=== PATIENT | male | born 1980 | race Hispanic/Latino ===

== ENCOUNTER 2024-12-19 11:26 | Day surgery (SDC) | payer OTHER, SELFPAY ==
[2024-12-17 07:33] VITALS: BMI 34.4
[2024-12-19 11:48] VITALS: BMI 33.0
[2024-12-19 11:56] VITALS: BP 144/95; PULSE 85; RESP 14; TEMP 36.6; O2SAT 100
[2024-12-19] MEDS: OXYMETAZOLINE NASAL SPRAY 30 ML 2 SPRAYS NASAL ×2 (12:11→13:45)
[2024-12-19] MEDS: LACTATED RINGERS 1,000 ML 42 ML IV ×2 (12:13→14:14)
--- NOTE | 2024-12-19 13:07 | PM.PREOP ---
Pre-operative Note Interval Note History & Physical reviewed/Exam performed by Physician: Yes Changes to H&P: No
--- NOTE | 2024-12-19 13:08 | P.HP_ITS ---
History of Present Illness History of Present Illness Date Patient Seen: 12/19/24 Time Patient Seen: 13:08 Chief complaint: Septoplasty Narrative: 44-year-old male last seen in clinic 11/04/2024 received cardiac clearance 12/16 and was begun on losartan 100 mg daily. No other health changes. Wishes to proceed with septoplasty and turbinate reduction as scheduled. PFSH Medical History Nasal septal deviation Sleep disturbance Rhinorrhea Tinnitus Surgical History Hx of hand surgery Hx of colonoscopy (02/2023) Social History Smoking Status: Current every day smoker alcohol intake: current Meds Home Medications and Allergies Home Medications Medication Instructions Recorded Confirmed Type losartan 100 mg tablet 100 mg PO DAILY 12/17/24 12/19/24 History Allergies Allergy/AdvReac Type Severity Reaction Status Date / Time No Known Drug Allergies Allergy Verified 12/19/24 11:44 Review of Systems Review of Systems Narrative: Negative except as listed in the HPI Exam Vital Signs (past 8 hours): - 12/19/24 11:56 Temperature 97.9 F Pulse Rate 85 Respiratory Rate 14 Blood Pressure 144/95 H Pulse Oximetry 100 Oxygen Delivery Method Room Air Oxygen Delivery Method Room Air Narrative Exam Narrative: Well-developed well-nourished, heart regular rate and rhythm without murmur, lungs clear to auscultation bilaterally Assessment & Plan Assessment & Plan narrative: Assessment: Nasal airway obstruction, septal deviation, inferior turbinate h ypertrophy, history of nasal injury, upper airway obstruction Plan: Following discussion of the material risks benefits complications and alternatives, the patient elected to proceed. Time-Based Coding :: [TOTAL MINUTES] spent with patient and on the chart (including review of chart, obtaining history, exam, reviewing outside data, placing orders, documenting exam and treatment plan, and counseling patient) on [DATE].
--- NOTE | 2024-12-19 13:09 | P.OP_ITS ---
Operative Date/Time/Diagnoses Date of procedure: 12/19/24 Time of procedure: 14:45 Pre-op diagnosis: Nasal airway obstruction, septal deviation, inferior turbinate hypertrophy, history of nasal injury, respiratory obstruction Post-op diagnosis: same Procedure & Clinicians Procedure: 1. Septoplasty 2. Bilateral inferior turbinate reduction via intramural cautery Same procedure as scheduled: Yes Indications: 44 Year old with the above diagnoses incompletely managed with medical therapy presents for the above procedure. Following discussion of the material risks benefits complications and alternatives, the patient elected to proceed. Surgeon: Ulices Peña Click Yes if Unassisted: Yes Anesthesia Type: General and Local Operative Notes Findings: 1 to 2+ primarily right septal deviation, [id number]-right inferior turbinate hypertrophy Estimated Blood Loss (mL): 60 Procedure in detail: Following identification and confirmation of consent as well as preoperative Afrin nasal spray, the patient was brought to the operating room suite and placed in the supine position. General endotracheal anesthesia was admi nistered. I infiltrated the septum widely bilaterally with 1% lidocaine 1 100,000 epinephrine followed by temporary packing with cotton with Afrin and 4% lidocaine. Following sterile prep and drape, the packing was removed and I performed a right devyn-transfixion incision, elevated the right mucoperichondrial and mucoperiosteal flap. I disarticulated near the bony/cartilaginous junction and elevated the left mucoperiosteal flap. Deviated portions of the perpendicular plate of the ethmoid and vomer were resected. The residual quadrilateral cartilage was further straightened by trimming it inferiorly as well as reducing the maxillary crest. A 2 mm strip of cartilage paralleling the residual 1 cm dorsal and caudal strut was resected to further straighten the quadrilateral cartilage. The hemitransfixion incision was closed with interrupted 5 0 chromic followed by a running 4 0 plain gut mattress suture to reapproximate the septal flaps. At case completion, [place] air channel silastic splints were placed bilaterally, sutured anteriorly with a single 4 0 nylon. The head of each inferior turbinate had been previously infiltrated with additional local anesthetic and a 25 gauge spinal needle was used to impale the length of the turbinate, with cautery on a setting of 15 activated on slow withdrawal over 2 passes. The turbinates were then outfractured. The procedure completed, sponge and needle counts were correct and the patient was extubated in the operating room and taken to recovery room in stable condition without known complication. Postoperative care: Nasal saline every hour while awake, Vaseline or Polysporin to the nostrils at all times, begin irrigations t.i.d. beginning pod 1. Humidifier at the bedside blowing on the face. Tylenol alternating with Advil for pain control, oxycodone if necessary for breakthrough pain. Complications: none Post-operative Condition: stable Disposition: same day surgery Plan for aftercare: Nasal saline every hour while awake, begin irrigations t.i.d. tomorrow if desired. Polysporin to the nostrils at all times, Tylenol alternating with Advil for pain control, oxycodone for breakthrough pain. Elevate head of bed, no nose blowing, no straining for 2 weeks. Ice directly under the nose on the upper lip has tolerated 24-48 hours at a minimum. Follow-up in 1 week for nasal splint removal.
--- NOTE | 2024-12-19 13:39 | SUR.OPER ---
Supine on padded OR bed, head on gel pad, arms padded and tucked at sides, legs uncrossed, safety belt at thigh, tape over blanket over lower legs .
[2024-12-19] MEDS: LIDOCAINE 4% SOLN 50 ML 20 ML TOP (13:45)
[2024-12-19] MEDS: LIDOCAINE 1% W/EPI 20ML 20 ML INJ (13:55)
[2024-12-19] MEDS: BACITRACIN OINT 0.9 GM PCKT 1 APPLIC TOP (14:20)
[2024-12-19 14:53] VITALS: BP 143/96; PULSE 113; RESP 10; TEMP 36.2; O2SAT 100
[2024-12-19] MEDS: OXYCODONE IR 5 MG TABLET PO ×2 (15:00→15:25)
[2024-12-19 15:01] VITALS: BP 153/105; PULSE 85; RESP 8; O2SAT 99
[2024-12-19] MEDS: fentaNYL 100 MCG/2 ML INJ IV ×2 (15:06→15:22)
[2024-12-19 15:07] VITALS: BP 145/102; PULSE 75; RESP 12; O2SAT 99
[2024-12-19 15:13] VITALS: BP 150/101; PULSE 76; RESP 18; O2SAT 99
[2024-12-19 15:29] VITALS: BP 148/94; PULSE 65; RESP 11; TEMP 36.1; O2SAT 97
== END 2024-12-19 15:53 | disposition home or self-care (01) ==
PROVIDERS: Referring Provider Otolaryngology; Visit Provider Otolaryngology
PROC: (CPT 30520; principal; 2024-12-19 13:00)
DX: J34.2 Deviated nasal septum (principal); J34.89 Other specified disorders of nose and nasal sinuses; J34.3 Hypertrophy of nasal turbinates; F17.210 Nicotine dependence, cigarettes, uncomplicated
CPT/HCPCS: 30520; 30802; J1100; J2250; J2405; J2704; J3010